=== PATIENT | female | born 1975 | race Caucasian/White ===

== ENCOUNTER 2017-04-03 10:52 | Emergency (ER) | payer OTHER ==
[~2017-04-03] VITALS: Ht 160 cm; Wt 71.2 kg
[~2017-04-03 10:52] MED LIST: ORPH100T PO; PERCOCET 5/3251 TAB PO; WELLBUTRIN XL300 MG; XANAX1 MG
== END 2017-04-03 15:00 | disposition home or self-care (01) ==
LOC: ER 10:52
DX: S93.401A Sprain of unspecified ligament of right ankle, initial encounter (principal); S90.31XA Contusion of right foot, initial encounter; X50.3XXA Overexertion from repetitive movements, initial encounter; Y93.89 Activity, other specified; Y92.89 Other specified places as the place of occurrence of the external cause; Y99.8 Other external cause status

== ENCOUNTER 2018-04-20 09:43 | Emergency (ER) | payer OTHER ==
[~2018-04-20] VITALS: Ht 157.5 cm; Wt 63.5 kg
[2018-04-20] MEDS ORDERED: TRAZODONE HCL50 MG (10:00)
[2018-04-20] MEDS ORDERED: WELLBUTRIN XL300 MG (10:00)
[2018-04-20] MEDS ORDERED: ULTRACET PO (11:11)
== END 2018-04-20 11:53 | disposition home or self-care (01) ==
LOC: ER 09:43
DX: S61.412A Laceration without foreign body of left hand, initial encounter (principal); S30.0XXA Contusion of lower back and pelvis, initial encounter; S60.211A Contusion of right wrist, initial encounter; W18.09XA Striking against other object with subsequent fall, initial encounter; Y93.89 Activity, other specified; Y92.89 Other specified places as the place of occurrence of the external cause; Y99.8 Other external cause status

== ENCOUNTER 2018-11-09 07:59 | Emergency (ER) | payer OTHER ==
[~2018-11-09] VITALS: Ht 160 cm; Wt 74.4 kg
[~2018-11-09 07:59] MED LIST changes: +TRAZODONE HCL50 MG; +ULTRACET PO
== END 2018-11-09 11:59 | disposition home or self-care (01) ==
LOC: ER 07:59
DX: J06.9 Acute upper respiratory infection, unspecified (principal); J32.8 Other chronic sinusitis